=== PATIENT | male | born 1995 | race Caucasian/White ===

== ENCOUNTER 2021-01-06 14:39 | Emergency (ER) | payer OTHER ==
[~2021-01-06] VITALS: Ht 180.3 cm; Wt 85.9 kg
[2021-01-06 14:58] VITALS: BP 126/78; TEMP 98.4
[2021-01-06] MEDS ORDERED: PREDNISONE20 MG PO (16:20)
[2021-01-06 16:39] VITALS: PULSE 60
[2021-01-07] MEDS ORDERED: PEPCID40 MG PO (02:39)
[2021-01-07] MEDS ORDERED: ATARAX50 MG PO (02:39)
== END 2021-01-06 16:42 | disposition home or self-care (01) ==
LOC: COL.ER 14:39
DX: L50.1 Idiopathic urticaria (principal)
CPT/HCPCS: J1200; J2930

== ENCOUNTER 2021-01-07 02:02 | Emergency (ER) | payer OTHER ==
[~2021-01-07] VITALS: Ht 180.3 cm; Wt 85.9 kg
[~2021-01-07 02:02] MED LIST: PREDNISONE20 MG PO
[2021-01-07 02:12] VITALS: BP 141/80; PULSE 71; TEMP 97.7
[2021-01-07] MEDS ORDERED: ATARAX50 MG PO (02:39)
[2021-01-07] MEDS ORDERED: PEPCID40 MG PO (02:39)
== END 2021-01-07 03:00 | disposition home or self-care (01) ==
LOC: COL.ER 02:02
DX: L50.1 Idiopathic urticaria (principal)
CPT/HCPCS: J1100; J1200